=== PATIENT | female | born 1975 | race Caucasian/White ===

== ENCOUNTER 2018-04-03 20:04 | Emergency (ER) | payer OTHER ==
[~2018-04-03] VITALS: Ht 160 cm; Wt 104.5 kg
[~2018-04-03 20:04] MED LIST: BACTRIM,SEPT1 TABLET PO; CLINDAMYCIN PHO60 M1 TP; DOXYCYCLINE150 MG PO; GREEN COFFEE B400 MG PO; KEFLEX500 MG PO; METFORMIN HCL500 M1 PO; NOHOMEMEDS; PERCOCET 5/31 TABLET PO; ROXICODONE5 MG PO; VICODIN 5-3001 EACH PO
[2018-04-03 23:18] VITALS: BP 124/86
== END 2018-04-03 23:19 | disposition home or self-care (01) ==
LOC: EME 20:04
DX: M25.562 Pain in left knee (principal); R22.42 Localized swelling, mass and lump, left lower limb; F32.9 Major depressive disorder, single episode, unspecified; F41.9 Anxiety disorder, unspecified; Z79.84 Long term (current) use of oral hypoglycemic drugs; Z87.891 Personal history of nicotine dependence
CPT/HCPCS: 73564; 93971; 99281; 99283

== ENCOUNTER 2018-04-26 20:47 | Emergency (ER) | payer OTHER ==
[~2018-04-26] VITALS: Ht 160 cm; Wt 105.2 kg
[2018-04-26] MEDS ORDERED: VIBRAMYCIN100 MG PO (22:10)
[2018-04-26] MEDS ORDERED: NAPROSYN500 MG PO (22:10)
[2018-04-26 22:20] VITALS: BP 142/84
== END 2018-04-26 22:21 | disposition home or self-care (01) ==
LOC: EME 20:47
DX: L03.211 Cellulitis of face (principal); L02.01 Cutaneous abscess of face
CPT/HCPCS: 99281; 99283